=== PATIENT | female | born 1960 | race Caucasian/White ===

== ENCOUNTER 2018-03-09 06:14 | Inpatient (IN) | payer OTHER ==
[2018-02-09 13:38] VITALS: BMI 31.0
[2018-02-11 14:10] VITALS: BMI 32.0
--- NOTE | 2018-02-11 14:37 | PAT Medication Instructions ---
Service Date Feb 11, 2018. Current Home Medication List Celecoxib (CeleBREX), 200 MG PO BID Diazepam (Valium), 5 MG PO BID PRN for PRN Ibuprofen (Advil), 400 MG PO Q6 PRN for Pain Tramadol (Ultram), 50 MG PO Q8H PRN for Pain Medication Instructions For Your Scheduled Surgery - Hold the following medications 7 days prior to surgery: Celecoxib (CeleBREX), 200 MG PO BID Ibuprofen (Advil), 400 MG PO Q6 PRN for Pain - Take the following medications the morning of surgery with a sip of water: Diazepam (Valium), 5 MG PO BID PRN for PRN (if needed) Tramadol (Ultram), 50 MG PO Q8H PRN for Pain (if needed, may be taken up to four hours before surgery) - Take the following medications as scheduled the night before surgery: Diazepam (Valium), 5 MG PO BID PRN for PRN (if needed) Tramadol (Ultram), 50 MG PO Q8H PRN for Pain (if needed) If you have any questions please call us at [phone] or [phone] or [phone]
--- NOTE | 2018-03-08 18:03 | History and Physical ---
History & Physical Date Mar 08, 2018. Chief Complaint Left hip pain and DJD History of Present Illness The patient is a 57 year old female with complaints of chronic atraumatic left hip pain that has progressively worsened over the last 6 months. Patient has failed conservative treatment measures including NSAIDs, corticosteroid injections and physical therapy/home exercise program. The patient's symptoms have progressed to the point where they are with most daily activities the patient does not tolerate exercise programs. The pain and limited function have made it difficult to perform activities of daily living. She is currently limited to ambulating with a cane at this point. Patient continues to have swelling and painful limited range of motion crepitation. Developed all forms of conservative treatments and are requesting to proceed with total hip replacement surgery. Past Medical/Surgical History No significant past medical history. Allergies Coded Allergies: No Known Allergies (Unverified , 02/09/18) Home Medications Scheduled Celecoxib (CeleBREX), 200 MG PO BID Scheduled PRN Diazepam (Valium), 5 MG PO BID PRN for PRN Ibuprofen (Advil), 400 MG PO Q6 PRN for Pain Tramadol (Ultram), 50 MG PO Q8H PRN for Pain Physical Examination Skin: warm/dry, no rash Eyes: normal inspection, EOMI, sclerae normal ENT: normal ENT inspection, pharynx normal Head: normocephalic, atraumatic Neck: supple, no adenopathy, trachea midline Respiratory/Chest: lungs clear, normal breath sounds, no respiratory distress Cardiovascular: regular rate, rhythm, no edema, no murmur Abdomen / GI: normal bowel sounds, non tender Back: normal inspection Extremities: + pertinent finding (Left lower extremity is neurovascularly sensory intact +2 dorsalis pedis pulse, positive EHL/FHL/TA/GS, painful active and passive range of motion of the hip.) Neurologic/Psych: no motor/sensory deficits, alert, normal reflexes, oriented x 3 Diagnosis Severe left hip DJD Plan of Treatment Have indicated the patient for left anterior total hip arthroplasty. The risks , benefits and complications of this procedure include but not limited to infection, acute blood loss, blood clots, PE, injury to surrounding bone, nerves , soft tissue, vessels, loss of function, chronic pain, hip dislocation, leg length discrepancy, failure of prosthesis, need for additional surgery, cardiac and pulmonary events and . The patient wished to proceed with surgical intervention at this time consent was obtained. The patient is relatively healthy and we acquired clearances by their primary care provider on 03/01/2018. We will plan for [facility] upon discharge from the hospital. Aspirin twice daily for DVT prophylaxis. Multiple views of the left hip demonstrate severe DJD, complete loss of the joint space, + osteophytes/sclerosis and subchondral cysts.
[2018-03-09] VITALS (9 sets, daily range): BP systolic 111–170; BP diastolic 63–85; PULSE 64–87; TEMP 36.4–36.8; O2SAT 95–100; Ht 162.6 cm; Wt 85.7 kg
[~2018-03-09] VITALS: Ht 162.6 cm; Wt 85.7 kg
[~2018-03-09 06:14] MED LIST: ACETAMINOPHEN 500 MG TAB PO SCH; CEFAZOLIN 2000MG IV PUSH 15 ML IV SCH; CLB/200 PO; CeleBREX 200 MG CAP PO SCH; DEXAMETHASONE 4 MG TAB PO SCH; DIAZ-165 PO; FAMOTIDINE 20 MG TAB PO SCH; IBUP-1050 PO; LACTATED RINGER'S 1000ML 1,000 ML IV SCH; METOCLOPRAMIDE HCL 10 MG TAB PO SCH; ROPIVACAINE 5MG/ML 30 ML 150 MG, BUPIVACAINE 0.5% MPF INJ 30 ML, EpINEphrine HCL INJ 0.... INFIL SCH; TRAM-10 PO
[2018-03-09] MEDS: TRANEXAMIC ACID INJ 1,000 MG x 2 Bags IV SCH ×4 (06:30→08:50)
[2018-03-09] MEDS ORDERED: BUPIVACAINE 0.5 % 5 MG/1 ML PF 10ML VIAL ONE (06:35)
[2018-03-09] MEDS ORDERED: CEFAZOLIN SOD 2000MG/15 ML IV PUSH ONE (06:54)
--- NOTE | 2018-03-09 06:54 | History & Physical Bridge Note ---
H&P Re-Evaluation Bridge Note: I have examined the patient, reviewed the History & Physical and in the interval since the performance of the History & Physical I have noted the following changes of clinical significance: No changes noted
[2018-03-09] MEDS ORDERED: DIAZEPAM 5MG TAB PO PRN (07:00)
[2018-03-09] MEDS ORDERED: MIDAZOLAM HCL 1 MG/ML 2ML VIAL ONE ×4 (07:12→11:24)
[2018-03-09] MEDS ORDERED: FENTANYL CITRATE INJ 50 MCG/1 ML 2 ML VIAL ONE (07:12)
[2018-03-09] MEDS ORDERED: BACITRACIN 50000 UNIT VIAL ONE (07:49)
[2018-03-09] MEDS ORDERED: POVIDONE-IODINE OP SOLN 30 ML BTL ONE (07:49)
[2018-03-09] MEDS ORDERED: ORTHO JOINT ANESTHETIC ONE (07:49)
[2018-03-09] MEDS ORDERED: ATROPINE SULFATE 0.1 MG/ML 5ML SYR IV PRN (08:30)
[2018-03-09] MEDS ORDERED: HYDROmorphone INJ 1 MG/ML SYR IV PRN (08:30)
[2018-03-09] MEDS ORDERED: MEPERIDINE HCL 25 MG/ML CARP IV PRN (08:30)
[2018-03-09] MEDS ORDERED: LABETALOL HCL IV 5 MG/ML 20ML IV PRN (08:30)
[2018-03-09] MEDS ORDERED: FENTANYL CITRATE INJ 50 MCG/1 ML 2 ML VIAL IV PRN (08:30)
[2018-03-09] MEDS ORDERED: EpHEDrine SULFATE INJ 50 MG/ML AMP IV PRN (08:30)
[2018-03-09] MEDS ORDERED: ONDANSETRON INJ 2 MG/ML 2 ML VIAL IV PRN ×2 (08:30→11:45)
[2018-03-09] MEDS ORDERED: PROPOFOL IV EMULSION 10 MG/ML 20 ML VIAL ONE (09:24)
[2018-03-09] MEDS ORDERED: DEXAMETHASONE SOD INJ 4 MG/ML VIAL ONE (09:42)
[2018-03-09] MEDS ORDERED: KETAMINE HCL INJ 50 MG/ML 10 ML VIAL ONE (09:57)
[2018-03-09] MEDS ORDERED: ONDANSETRON INJ 2 MG/ML 2 ML VIAL ONE (11:26)
--- NOTE | 2018-03-09 11:36 | [facility] Post Operative Brief Note ---
Immediate Operative Summary Operative Date Mar 09, 2018. Pre-Operative Diagnosis Left Hip Degnerative Joint Disease Post-Operative Diagnosis Same Procedure(s) Performed Left Total Hip Arthroplasty Anterior Surgeon Caitie Non Destructive Testing Technician Surgeon(s) Conor Estimated Blood Loss 100 ml Findings Consistent with Post-Op Diagnosis Fluids (cc crystalloids) 1200 Specimens A. Left Femoral Head Drains None Anesthesia Type MAC Spinal Regional Complication(s) none Disposition Disposition: Recovery Room / PACU Overlapping Procedure I was present for: the critical portions of procedure. I was immediately available: during the entire case Back up surgeon: was not required during procedure
[2018-03-09] MEDS ORDERED: CEFAZOLIN IV SCH (11:45)
[2018-03-09] MEDS ORDERED: DEXTROSE 5% IV SCH (11:45)
[2018-03-09] MEDS ORDERED: MoRPHine SULFATE 2 MG/ML CARP IV PRN (11:45)
--- NOTE | 2018-03-09 11:57 | [facility] Operative Report ---
Operative Report Operative Date Mar 09, 2018. Pre-Operative Diagnosis Left Hip Degnerative Joint Disease Post-Operative Diagnosis Same Procedure(s) Performed Left Total Hip Arthroplasty Anterior Surgeon Caitie Engineering Analyst Surgeon(s) Conor Estimated Blood Loss 100 ml Findings See dictated op note Fluids 1200 Specimens A. Left Femoral Head Drains None Anesthesia Type MAC Spinal Regional Complication(s) none Disposition Recovery Room / PACU Indications The patient is a 57-year-old female who presents with severe progressive left hip DJD who has failed outpatient conservative treatments. I indicated the patient for a anterior total hip replacement and the risks and benefits were explained in detail which include but not limited to infection, bleeding, blood clot, damage to surrounding bone, nerves, vessels, soft tissue, hip dislocation , failure of the prosthesis, leg length discrepancy, need for additional surgery and . The patient agreed to proceed with replacement of the hip and informed consent was obtained. Appropriate clearances were obtained. Description of Procedure COMPONENTS USED: [email or web address] hip system: Acetabulum size 48, femur size 4 offset, femoral head 32+4, liner 3248, acetabular screw 25 mm. DESCRIPTION OF PROCEDURE: Following satisfactory spinal anesthesia, the patient was placed supine on the OR table. The right leg was placed in the well leg bhat and the left leg in the traction device. The left leg was prepared with ChloraPrep and draped sterilely. Following a surgical time-out, an anterior approach in the interval between the sartorius and tensor muscles was completed. Circumflex femoral vessels were identified, tied and ligated. The anterior capsular fat pad was removed and the capsulotomy was performed revealing the arthritic femoral neck and head. A femoral neck cut was made with reciprocating saw and the bone fragments removed. The acetabular self- retraining retractor was placed. Acetabular reaming was completed under fluoroscopic guidance, a 48 shell was impacted into an anatomic position and secured with a dome screw. Local anesthetic was placed and following irrigation , the polyethylene liner was placed. The femur was placed into position of external rotation, extension and adduction. Femoral canal was prepared up to the size 4 standard offset. Trial reduction with a +4 neck length head showed good soft tissue tension, leg lengths restored, and good fit and fill of the proximal canal using fluoroscopic landmarks. The hip was dislocated. The trial component was removed. The final implant was placed. The hip was irrigated with sterile saline solution and reduced. A Betadine soak was performed. After 3 minutes, the hip was once more irrigated with copious sterile saline solution with bacitracin. Bozena-incisional soft tissue was injected utilizing [place] [employer] which includes a combination of Ropivicaine 0.5% 150mg, Bupivicaine 0.5%/Epinephrine 1:200,000 30ml, Toradol 30mg, Dexamethasone 4mg, Ketamine 10mg, Clonidine 100mcg and NSS 30ml solution. The capsule was then closed with 1-0 Vicryl interrupted figure of eight sutures. The fascia was closed with a running suture of #1 Vicryl, the subcutaneous tissues with 2-0 Vicryl and the skin with a running subcuticular stitch of 3-0 V-Loc. Dermabond prineo and a dry dressing were applied. The patient tolerated the procedure well and was transported to PACU in stable condition. Due to the complex nature of the procedure, the entire surgery was performed with the operational assistance of Patricia Perdomo PA-C. The pediatric dental assistant, under direct supervision, was involved in the actual performance of all aspects of the surgical procedure including patient positioning, hemostasis, tissue retraction, instrument management and wound closure. I attest to the content of the Intraoperative Record and any orders documented therein. Any exceptions are noted below.
--- NOTE | 2018-03-09 12:01 | DIAGNOSTIC IMAGING REPORT ---
L HIP UNILATERAL 1 VIEW CLINICAL HISTORY: LT ANTERIOR TOTAL joint replacement COMPARISON: None. DISCUSSION: Anatomic alignment post total left hip arthroplasty. Expected soft tissue postoperative change IMPRESSION: Anatomic alignment post total left hip arthroplasty The above report was generated using voice recognition software. It may contain grammatical, syntax or spelling errors. Electronically signed by: Barrett Mendosa M.D. 03/09/2018 12:00 PM Dictated Date/Time: 03/09/2018 11:59 AM
--- NOTE | 2018-03-09 12:28 | DIAGNOSTIC IMAGING REPORT ---
L PELVIS/UNILATERAL HIP 1 VIEW CLINICAL HISTORY: IN PACU - A/P PELVIS and LATERAL HIP INCLUDING ALL OF IMPLANT COMPARISON: None. DISCUSSION: Total left hip arthroplasty. Good contact between prosthetic and the Bone. All remaining osseous structures are unremarkable. Expected postoperative soft tissue change. IMPRESSION: Anatomic alignment post total left hip arthroplasty. The above report was generated using voice recognition software. It may contain grammatical, syntax or spelling errors. Electronically signed by: Barrett Mendosa M.D. 03/09/2018 12:27 PM Dictated Date/Time: 03/09/2018 12:26 PM
--- NOTE | 2018-03-09 13:36 | Anesthesiology Progress Note ---
Anesthesia Post Op Note Date & Time Mar 09, 2018 at 13:35 Vital Signs Pain Intensity: 0 Vital Signs Past 12 Hours Date Time Temp Pulse Resp B/P (MAP) Pulse Ox O2 Delivery O2 Flow Rate FiO2 03/09/18 12:55 95 Room Air 03/09/18 12:55 95 Room Air 03/09/18 12:53 36.4 71 15 114/74 (87) 95 Room Air 03/09/18 12:45 36.4 86 16 131/75 98 Room Air 03/09/18 12:35 83 16 155/77 100 Room Air 03/09/18 12:25 81 16 146/75 100 Nasal Cannula 3 03/09/18 12:15 78 16 162/81 100 Nasal Cannula 3 03/09/18 12:07 36.0 73 16 146/88 98 Nasal Cannula 3 03/09/18 06:59 36.8 84 20 170/85 99 Room Air Notes Mental Status: alert / awake / arousable, participated in evaluation Pt Amnestic to Procedure: Yes Nausea / Vomiting: adequately controlled Pain: adequately controlled Airway Patency, RR, SpO2: stable & adequate BP & HR: stable & adequate Hydration State: stable & adequate Neuraxial Anesthesia: was administered, sensory block is resolving Anesthetic Complications: no major complications apparent
[2018-03-09] MEDS: SODIUM CHLORIDE 0.9% 1000ML 1,000 ML IV SCH ×2 (14:14→21:19)
[2018-03-09] MEDS: ACETAMINOPHEN 500 MG TAB PO SCH ×2 (14:25→21:14)
[2018-03-09] MEDS: OXYCODONE HCL IR 5 MG TAB (IMMEDIATE RELEASE) PO PRN ×2 (17:12→21:14)
[2018-03-09] MEDS: CEFAZOLIN IV 2,000 MG in SYRINGE 0 ML IV SCH (17:57)
[2018-03-09] MEDS: KETOROLAC TROMETHAMINE 30 MG/ML VIAL IV. SCH (17:57)
[2018-03-09] MEDS ORDERED: SODIUM CHLORIDE 0.65% NA SOLN 45 ML (OCEAN) PRN (20:15)
[2018-03-09] MEDS ORDERED: NURSING DECISION MEDICATION ORDER SCH (20:15)
[2018-03-09] MEDS: SENNA 8.6 MG TAB PO SCH (21:13)
[2018-03-09] MEDS: ASPIRIN 325 MG ECTAB PO SCH (21:13)
[2018-03-09] MEDS: DOCUSATE SODIUM 100 MG CAP PO SCH (21:13)
[2018-03-10] VITALS (7 sets, daily range): BP systolic 113–147; BP diastolic 64–82; PULSE 63–83; TEMP 36.3–36.6; O2SAT 95–100
[2018-03-10] MEDS: KETOROLAC TROMETHAMINE 30 MG/ML VIAL IV. SCH ×3 (00:06→12:08)
[2018-03-10] MEDS: CEFAZOLIN IV 2,000 MG in SYRINGE 0 ML IV SCH (01:55)
[2018-03-10] MEDS: OXYCODONE HCL IR 5 MG TAB (IMMEDIATE RELEASE) PO PRN ×4 (02:00→19:39)
[2018-03-10] MEDS: ACETAMINOPHEN 500 MG TAB PO SCH ×3 (06:08→20:58)
[2018-03-10 06:48] LABS: HEMATOCRIT 37.2 % (37-47); HEMOGLOBIN 12.7 g/dL (12.0-16.0); IG# 0.03 K/uL (0.00-0.02); LYMPH % 8.4 %; LYMPH ABS # 1.31 K/uL (1.2-3.4); MEAN CELL VOLUME 90.1 fL (80-100); MEAN CORPUSCULAR HEMOGLOBIN 30.8 pg (25-34); MEAN CORPUSCULAR HGB CONC 34.1 g/dl (32-36); MEAN PLATELET VOLUME 10.4 fL (7.4-10.4); MONO % 4.5 %; NEUT % 86.9 %; PLATELET COUNT 275 K/uL (130-400); RED CELL DISTRIBUTION WIDTH CV 12.7 % (11.5-14.5); RED CELL DISTRIBUTION WIDTH SD 41.4 fL (36.4-46.3); WHITE BLOOD COUNT 15.54 K/uL (4.8-10.8)
[2018-03-10 06:56] LABS: INR 1.1 (0.9-1.1)
[2018-03-10] MEDS: SODIUM CHLORIDE 0.9% 1000ML 1,000 ML IV SCH (06:59)
[2018-03-10 07:23] LABS: CALCIUM 8.7 mg/dl (8.5-10.1); CREATININE 0.77 mg/dl (0.60-1.20); POTASSIUM 4.1 mmol/L (3.5-5.1)
--- NOTE | 2018-03-10 08:01 | Anesthesiology Progress Note ---
Anesthesia Post Op Note Date & Time Mar 10, 2018 at 08:00 Vital Signs Pain Intensity: 4.0 Vital Signs Past 12 Hours Date Time Temp Pulse Resp B/P (MAP) Pulse Ox O2 Delivery O2 Flow Rate FiO2 03/10/18 07:28 36.5 83 18 147/76 (99) 100 Room Air 03/10/18 07:20 Room Air 03/10/18 03:55 36.4 66 16 113/64 (80) 98 Room Air 03/10/18 00:15 95 Room Air 3.0 03/09/18 23:01 36.7 81 16 127/63 (84) 99 Room Air Notes Mental Status: alert / awake / arousable, participated in evaluation Pt Amnestic to Procedure: Yes Nausea / Vomiting: adequately controlled Pain: adequately controlled Airway Patency, RR, SpO2: stable & adequate BP & HR: stable & adequate Hydration State: stable & adequate Neuraxial Anesthesia: was administered, sensory block resolved Anesthetic Complications: no major complications apparent
[2018-03-10] MEDS: PANTOprazole SOD 40 MG TAB PO SCH (08:18)
[2018-03-10] MEDS: ASPIRIN 325 MG ECTAB PO SCH ×2 (08:18→20:58)
--- NOTE | 2018-03-10 09:28 | Orthopedic Progress Note ---
Orthopedic Progress Note Date of Service Mar 10, 2018. Subjective Additional Notes: Postoperative progress note Patient was seen in PACU resting comfortably, pain well controlled, still feeling the effects of spinal anesthesia, no acute issues. Objective Left lower extremity exam limited secondary to spinal anesthesia, +2 dorsalis pedis pulse, capillary refill less than 2 seconds, incisional VAC in place, compartments soft nontender Date Time Temp Pulse Resp B/P (MAP) Pulse Ox O2 Delivery O2 Flow Rate FiO2 03/10/18 07:28 36.5 83 18 147/76 (99) 100 Room Air 03/10/18 07:20 Room Air 03/10/18 03:55 36.4 66 16 113/64 (80) 98 Room Air 03/10/18 00:15 95 Room Air 3.0 03/09/18 23:01 36.7 81 16 127/63 (84) 99 Room Air 03/09/18 19:03 36.7 83 18 119/72 (88) 98 Room Air 03/09/18 15:52 77 16 111/67 (82) 97 Room Air 03/09/18 15:40 Room Air 03/09/18 14:55 36.4 78 18 121/74 (90) 98 Room Air 03/09/18 14:04 36.4 87 18 125/74 (91) 100 Room Air 03/09/18 13:38 36.4 64 18 126/77 (93) 100 Room Air 03/09/18 12:55 95 Room Air 03/09/18 12:55 95 Room Air 03/09/18 12:53 36.4 71 15 114/74 (87) 95 Room Air 03/09/18 12:45 36.4 86 16 131/75 98 Room Air 03/09/18 12:35 83 16 155/77 100 Room Air 03/09/18 12:25 81 16 146/75 100 Nasal Cannula 3 03/09/18 12:15 78 16 162/81 100 Nasal Cannula 3 03/09/18 12:07 36.0 73 16 146/88 98 Nasal Cannula 3 Laboratory Results 24 Hours: Test 03/10/18 06:19 White Blood Count 15.54 K/uL Red Blood Count 4.13 M/uL Hemoglobin 12.7 g/dL Hematocrit 37.2 % Mean Corpuscular Volume 90.1 fL Mean Corpuscular Hemoglobin 30.8 pg Mean Corpuscular Hemoglobin Concent 34.1 g/dl Platelet Count 275 K/uL Mean Platelet Volume 10.4 fL Neutrophils (%) (Auto) 86.9 % Lymphocytes (%) (Auto) 8.4 % Monocytes (%) (Auto) 4.5 % Eosinophils (%) (Auto) 0.0 % Basophils (%) (Auto) 0.0 % Neutrophils # (Auto) 13.50 K/uL Lymphocytes # (Auto) 1.31 K/uL Monocytes # (Auto) 0.70 K/uL Eosinophils # (Auto) 0.00 K/uL Basophils # (Auto) 0.00 K/uL Prothromb Time International Ratio 1.1 Prothrombin Time 11.1 SECONDS Assessment & Plan Assessment: Status post left anterior total hip arthroplasty Plan: -Ancef 24 -DVT prophylaxis aspirin twice daily -Weight-bear as tolerates left lower extremity -PT OT -Postoperative x-ray demonstrates a well aligned well fixed total hip prosthesis without evidence of fracture or dislocation -A.m. labs -Discharge planning home with home care
--- NOTE | 2018-03-10 09:29 | Orthopedic Progress Note ---
Orthopedic Progress Note Date of Service Mar 10, 2018. Subjective Additional Notes: Postoperative day 1 progress note Patient seen sitting in chair at bedside, family in room, pain well controlled, admits to soreness otherwise improved pain compared to postoperatively, no acute issues overnight Objective Left lower extremity is neurovascular sensory intact +2 dorsalis pedis pulse, capillary refill less than 2 seconds, incisional VAC is intact, compartments soft nontender Date Time Temp Pulse Resp B/P (MAP) Pulse Ox O2 Delivery O2 Flow Rate FiO2 03/10/18 07:28 36.5 83 18 147/76 (99) 100 Room Air 03/10/18 07:20 Room Air 03/10/18 03:55 36.4 66 16 113/64 (80) 98 Room Air 03/10/18 00:15 95 Room Air 3.0 03/09/18 23:01 36.7 81 16 127/63 (84) 99 Room Air 03/09/18 19:03 36.7 83 18 119/72 (88) 98 Room Air 03/09/18 15:52 77 16 111/67 (82) 97 Room Air 03/09/18 15:40 Room Air 03/09/18 14:55 36.4 78 18 121/74 (90) 98 Room Air 03/09/18 14:04 36.4 87 18 125/74 (91) 100 Room Air 03/09/18 13:38 36.4 64 18 126/77 (93) 100 Room Air 03/09/18 12:55 95 Room Air 03/09/18 12:55 95 Room Air 03/09/18 12:53 36.4 71 15 114/74 (87) 95 Room Air 03/09/18 12:45 36.4 86 16 131/75 98 Room Air 03/09/18 12:35 83 16 155/77 100 Room Air 03/09/18 12:25 81 16 146/75 100 Nasal Cannula 3 03/09/18 12:15 78 16 162/81 100 Nasal Cannula 3 03/09/18 12:07 36.0 73 16 146/88 98 Nasal Cannula 3 Laboratory Results 24 Hours: Test 03/10/18 06:19 White Blood Count 15.54 K/uL Red Blood Count 4.13 M/uL Hemoglobin 12.7 g/dL Hematocrit 37.2 % Mean Corpuscular Volume 90.1 fL Mean Corpuscular Hemoglobin 30.8 pg Mean Corpuscular Hemoglobin Concent 34.1 g/dl Platelet Count 275 K/uL Mean Platelet Volume 10.4 fL Neutrophils (%) (Auto) 86.9 % Lymphocytes (%) (Auto) 8.4 % Monocytes (%) (Auto) 4.5 % Eosinophils (%) (Auto) 0.0 % Basophils (%) (Auto) 0.0 % Neutrophils # (Auto) 13.50 K/uL Lymphocytes # (Auto) 1.31 K/uL Monocytes # (Auto) 0.70 K/uL Eosinophils # (Auto) 0.00 K/uL Basophils # (Auto) 0.00 K/uL Prothromb Time International Ratio 1.1 Prothrombin Time 11.1 SECONDS Assessment & Plan Assessment: Status post left anterior total hip arthroplasty Postoperative day #1 Plan: -Ancef 24 -DVT prophylaxis aspirin twice daily -Weight-bear as tolerates left lower extremity -PT OT -Postoperative x-ray demonstrates a well aligned well fixed total hip prosthesis without evidence of fracture or dislocation -A.m. labs -hemoglobin 12.7 -Discharge planning home with home care, anticipation discharge today
[2018-03-10] MEDS: DOCUSATE SODIUM 100 MG CAP PO SCH ×2 (09:58→20:58)
[2018-03-10] MEDS: MULTIVITAMIN TAB PO SCH (09:58)
--- NOTE | 2018-03-10 11:56 | Discharge Instructions ---
Discharge Instructions Date of Service Mar 10, 2018. Admission Reason for Admission: Left Hip Osteoarthritis Discharge Discharge Diagnosis / Problem: Left Hip Osteoarthritis Discharge Goals Goal(s): Decrease discomfort, Improve function Activity Recommendations Activity Limitations: per Instructions/Follow-up section Weightbearing Status: Left weightbearing (as tolerated) . Instructions / Follow-Up Instructions / Follow-Up ACTIVITY RECOMMENDATIONS: SELF CARE INSTRUCTIONS AFTER TOTAL HIP REPLACEMENT : Direct Anterior Approach Until the incision and soft tissues around your hip have healed, there is a possibility that the hip prosthesis could dislocate. A. Hip flexion ( Up & Down out of chair or steps ) may be difficult. This is normal. B. Numbness in front of the thigh is also normal for a few weeks. C. Use hand rails when walking on stairs. D. Wear low heeled shoes with non-slip soles. E. Be sure that your floors are free of things that could trip you - throw rugs , electrical cords, small objects. Avoid wet and waxed floors, especially with crutches and canes. F. Try to walk several times a day with rest periods between. G. Continue with all the exercises taught to you in the hospital. Again, make walking a part of your daily routine. SPECIAL CARE INSTRUCTIONS: VERY IMPORTANT TO READ AND REVIEW A. You may still be at risk for phlebitis and blood clots. 1. Wear surgical stockings (MINE hose) for 2 weeks after surgery to improve circulation and reduce swelling. 2. Take Aspirin 325mg twice daily for 4 weeks or as directed by your doctor. This is your blood thinner. 3. High risk patients may be prescribed a stronger blood thinner if necessary. 4. If you are on Coumadin normally, your family doctor/millinery department manager should monitor your blood work. Expect a phone call the day of or the day after bloodwork is drawn to adjust your dosage. B. You must take antibiotics before having dental work, bladder, bowel and other surgery. Your doctor will provide you with a permanent card to carry describing precautions. C. Call [facility] if you have a fever, redness or swelling around the incision, cloudy drainage from incision, or sudden increase in pain in your hip, not relieved by your regular pain medication. D. Please call the office at if you have any concerns or questions about your operation or recovery. * YOU MAY SHOWER, NO TUB BATHS UNTIL CLEARED BY YOUR DOCTOR. - Keep an extra close eye on the top portion of your incision. Be sure to keep clean & dry. * WEAR MINE HOSE 20 HOURS PER DAY FOR 2 WEEKS. * YOU MAY PROGRESS FROM A WALKER, TO A CANE, TO INDEPENDENT AT YOUR OWN PACE. * MOST PATIENTS WILL HAVE HOME NURSING FOR THERAPY. IF YOU DECIDE TO DO OUTPATIENT PHYSICAL THERAPY, PLEASE SCHEDULE THIS 3 TIMES PER WEEK. * DERMABOND Prineo- This is a mesh tape dressing that is covered with glue. It should remain in place until the incision is properly healed, usually 10-14 days. This dressing is designed to naturally slough off. You may trim the excess mesh tape as it peels off. Incision may be briefly wet in a shower. Dry immediately by blotting with a clean, dry towel. Do not bath or swim until instructed by your doctor. Do not scratch, rub, or pick at the dressing. Do not apply any topical ointments or lotions until dressing is completely removed and/or instructed by your doctor. There may be a small piece of suture material at one end of your incision. Do not pull or trim this. If it is bothersome or catching on clothing, you may cover it with a band-aid. FOLLOW UP VISIT: If appointment is not already scheduled: Please call [facility] to make a follow-up appointment for 2 weeks after your surgery at . Current Hospital Diet Patient's current hospital diet: Regular Diet Discharge Diet Recommended Diet: Regular Diet Procedures Procedures Performed: Left Total Hip Arthroplasty Anterior Pending Studies Studies pending at discharge: no Laboratory Results Hemoglobin A1c Test 02/11/18 14:57 Range/Units Estimated Average Glucose 97 mg/dl Hemoglobin A1c 5.0 4.5-5.6 % Medical Emergencies . Who to Call and When: Medical Emergencies: If at any time you feel your situation is an emergency, please call 911 immediately. . Non-Emergent Contact Non-Emergency issues call your: Surgeon Call Non-Emergent contact if: temperature is above 101.5, your pain is not controlled, your pain is worsening, wound has increased drainage, wound has increased redness . "Provider Documentation" section prepared by Jose Alejandro Carrillo. . [place] Drug Monitoring Program Search Results: patient reviewed within database, no issues identified
[2018-03-10] MEDS ORDERED: CLB/200 PO (12:12)
[2018-03-10] MEDS ORDERED: ASPEC325 PO (12:12)
[2018-03-10] MEDS ORDERED: RXC5 PO (12:12)
[2018-03-10] MEDS ORDERED: SENN-61 PO (12:12)
[2018-03-10] MEDS ORDERED: ACET-24 PO (12:12)
[2018-03-10] MEDS: CeleBREX 200 MG CAP PO SCH (20:58)
[2018-03-10] MEDS: SENNA 8.6 MG TAB PO SCH (20:58)
[2018-03-11 00:15] VITALS: O2SAT 100
[2018-03-11] MEDS: OXYCODONE HCL IR 5 MG TAB (IMMEDIATE RELEASE) PO PRN ×3 (04:51→10:55)
[2018-03-11] MEDS: ACETAMINOPHEN 500 MG TAB PO SCH (05:59)
[2018-03-11 07:12] VITALS: BP 138/74; PULSE 82; TEMP 36.5; O2SAT 100
--- NOTE | 2018-03-11 07:44 | Orthopedic Progress Note ---
Orthopedic Progress Note Date of Service Mar 11, 2018. Subjective Post OP Day: 2 Reports: feeling well, Denies: chest pain, SOB, nausea / vomiting, light headedness, calf pain Objective calves soft nontender, N/V intact, hip located, capillary refill less than 2 sec., dressing C/D/I, A&O x3, toes mobile Date Time Temp Pulse Resp B/P (MAP) Pulse Ox O2 Delivery O2 Flow Rate FiO2 03/11/18 07:12 36.5 82 18 138/74 (95) 100 Room Air 03/11/18 00:15 100 Room Air 3.0 03/10/18 23:03 36.4 74 16 114/65 (81) 100 Room Air 03/10/18 16:20 Room Air 03/10/18 15:28 36.6 83 18 121/73 (89) 100 Room Air 03/10/18 11:59 75 100 03/10/18 11:04 36.3 63 16 119/71 (87) 100 Room Air Assessment & Plan Assessment: Status post left anterior total hip arthroplasty Postoperative day #2 Plan: -Ancef 24 -DVT prophylaxis aspirin twice daily -Weight-bear as tolerates left lower extremity -PT OT -Postoperative x-ray demonstrates a well aligned well fixed total hip prosthesis without evidence of fracture or dislocation -A.m. labs -hemoglobin 12.7 -Discharge planning home with home care, anticipation discharge today
[2018-03-11 08:02] VITALS: BP 138/74; PULSE 82; TEMP 36.5; O2SAT 100
[2018-03-11] MEDS: ASPIRIN 325 MG ECTAB PO SCH (08:56)
[2018-03-11] MEDS: PANTOprazole SOD 40 MG TAB PO SCH (08:56)
[2018-03-11] MEDS: CeleBREX 200 MG CAP PO SCH (08:56)
[2018-03-11] MEDS: DOCUSATE SODIUM 100 MG CAP PO SCH (08:56)
[2018-03-11] MEDS: MULTIVITAMIN TAB PO SCH (08:56)
== END 2018-03-11 11:45 | disposition home health service (06) | DRG 470 ==
LOC: C.ACU 06:14 → C.3E 08:45 → ENRESERV 12:30
PROVIDERS: ADMIT Orthopaedic Surgery; ATTEND Orthopaedic Surgery
PROC: 0SRB0JA Replacement of Left Hip Joint with Synthetic Substitute, Uncemented, Open Approach (ICD-10-PCS; principal; 2018-03-09 08:45)
DX: M16.12 Unilateral primary osteoarthritis, left hip (principal); Z79.899 Other long term (current) drug therapy

== ENCOUNTER 2020-10-22 06:43 | Inpatient (IN) ==
--- NOTE | 2020-10-10 11:08 | PAT Medication Instructions ---
Medication Instructions Date of Service October 10, 2020 Home Medications acetaminophen [Acetaminophen Extra Strength] 1,000 mg PO TID PRN celecoxib [Celebrex] 200 mg PO BID ASK your surgeon for instructions celecoxib [Celebrex] 200 mg PO BID Take morning of surgery With a small sip of water, OTHERWISE NOTHING TO EAT OR DRINK AFTER MIDNIGHT: acetaminophen [Acetaminophen Extra Strength] 1,000 mg PO TID PRN (okay to take up to 4 hours prior to surgery if needed) Take evening before surgery acetaminophen [Acetaminophen Extra Strength] 1,000 mg PO TID PRN (if needed) Other Notes If you have any questions please call us at [phone] or [phone] or [phone] or [phone]
--- NOTE | 2020-10-11 14:27 | Anesthesiology Consultation ---
Date of Service October 11, 2020 Assessment & Plan (1) Encounter for pre-operative examination: Chart Review Chart Review: Acceptable Risk for Surgery (pending 10/15 PCP clearance and preop Covid testing ) and Patient seen in Pre Admission Testing Awaiting surgeon ordered PCP clearance 10/15/20 Pt had awareness with left FARHAT Per PAT appt on 10/11/20, pt resides in [facility]- denies travel with exception to [facility] for medical appts. Wears mask in public. No known Covid infection in the past 90 days. No known Covid positive contacts or Covid related symptoms. Preop Covid testing scheduled 10/17/20= will await results. Educated on importance of self quarantining, social distancing and wearing mask in public both for the patient and household contacts. Left FARHAT 03/09/18= Done under SAB at L3-4 with 1 attempt. Teaching & Discussion Pre-Anesthesia Teaching/Discussion Notes: Instructed NPO after midnight before surgery,except medications with 15 cc of water. Medication instructions provided according to the [facility] guidelines. History Surgery Operation Date: 10/22/20 07:00 Proposed Procedures p Right Anterior Total Hip Arthroplasty - Saturnino Blood DO Height/Weight Height: 5 ft 4 in Weight: 82.6 kg Allergies Allergy/AdvReac Type Severity Reaction Status Date / Time No Known Allergies Allergy Verified 10/10/20 09:35 Medications Home Medications Medication Instructions Recorded Confirmed Last Taken acetaminophen [Acetaminophen Extra 1,000 mg PO TID PRN 09/19/20 10/10/20 Unknown Strength] celecoxib [Celebrex] 200 mg PO BID 09/19/20 10/10/20 Unknown Past Medical History Medical History Degenerative joint disease (DJD) of hip History of anesthesia reaction woke up during left FARHAT 2018 @ [facility] Exercise / Class Metabolic Activity II 4-5 Yardwork/Stairs/Walk up hill (ONE FLIGHT OF STAIRS- NO CHEST PAIN OR SOB ) Past Family History Family History Mother Family history of esophageal cancer Other No family history of adverse response to anesthesia Past Surgical History Surgical History History of appendectomy History of benign breast biopsy History of section History of tooth extraction History of total left hip arthroplasty Past Anesthesia History No Hx of Anesthesia Complications (with exception to awareness with left FARHAT ) and No Family Hx of Anesthesia Complications History of PONV No Hx of PONV and No Hx of Motion Sickness Social History Smoking Status: Former smoker Do You Dip or Chew Tobacco: No Smoking End Date: quit 15yrs ago Hx Alcohol Use: Yes Alcohol type: beer and wine alcohol intake frequency: a few times a month Hx Substance Use: No substance use type: does not use Review of Systems Patient denies chest pain, shortness of breath, dyspnea on exertion, reflux, cough, wheezing, palpitations. No hx of seizures, stroke, [place], apnea/snoring. No hx of blood clots or blood transfusions Physical Exam Vital Signs VITALS BP 164/84 P 82 TEMP 98.4 SP02 100% RESP 16 Constitutional no acute distress ENMT Mouth: no TMJ clicking Thyromental Distance: < 3.5 Finger Breadths (3.0) Mallampati Class: III Missing molars Neck + short neck and + limited neck extension (mild ) Respiratory normal respiratory effort; no respiratory distress Auscultation: lungs clear to auscultation bilaterally; no wheezes Cardiovascular Rate/Rhythm: regular rate and regular rhythm Heart Sounds: no murmur Vessels: no carotid bruit Musculoskeletal Spine: no pain with cervical ROM Extremities: extremities normal to inspection Psychiatric Orientation: alert Testing Laboratory Results 10/11/20 14:57 10/11/20 14:57 PT 11.0 Seconds (9.0-12.0) 10/11/20 14:57 INR 1.1 (0.9-1.1) 10/11/20 14:57 APTT 26.3 Seconds (21.0-31.0) 10/11/20 14:57 Hemoglobin A1c 5.2 % (4.5-5.6) 10/11/20 14:57 Urine Color Yellow 10/11/20 14:57 Urine Appearance Clear (Clear) 10/11/20 14:57 Urine pH 6.5 (4.5-7.5) 10/11/20 14:57 Ur Specific [place] 1.017 (1.000-1.030) 10/11/20 14:57 Urine Protein Negative (Negative) 10/11/20 14:57 Urine Glucose (UA) Negative (Negative) 10/11/20 14:57 Urine Ketones Negative (Negative) 10/11/20 14:57 Urine Nitrite Negative (Negative) 10/11/20 14:57 Ur Leukocyte Esterase Negative (Negative) 10/11/20 14:57 Blood Type A Positive 10/11/20 14:57 Antibody Screen NEGATIVE 10/11/20 14:57 10/11/20 14:57 Urine Culture - Preliminary Urine,Clean Catch No growth - Less than 1,000 colonies/mL, Final report to follow. Electrocardiogram Date: 10/11/20 Findings: + NSR @ (73bpm) Normal EKG. Chest X-Ray Date: 10/11/20 Findings: + NAD
[2020-10-11 15:16] LABS: Basophils # (auto) 0.04 K/uL (0-0.2); Basophils % (auto) 0.6 %; Eosinophils # (auto) 0.12 K/uL (0-0.5); Eosinophils % (auto) 1.8 %; Hematocrit (blood only) 41.5 % (37-47); Hemoglobin 14.5 g/dL (12.0-16.0); Immature Granulocytes # (auto) 0.01 K/uL (0.00-0.02); Immature Granulocytes % (auto) 0.1 %; Lymphocytes # (auto) 1.85 K/uL (1.2-3.4); Lymphocytes % (auto) 27.1 %; Mean Corpuscular Hemoglobin 31.9 pg (25-34); Mean Corpuscular Hgb Conc 34.9 g/dL (32-36); Mean Corpuscular Volume 91.2 fL (80-100); Mean Platelet Volume 10.1 fL (7.4-10.4); Monocytes # (auto) 0.36 K/uL (0.11-0.59); Monocytes % (auto) 5.3 %; Neutrophils # (auto) 4.44 K/uL (1.4-6.5); Neutrophils % (auto) 65.1 %; Platelet Count 303 K/uL (130-400); RDW Coefficient of Variation 12.5 % (11.5-14.5); RDW Standard Deviation 41.9 fL (36.4-46.3); Red Blood Count 4.55 M/uL (4.2-5.4); White Blood Count 6.82 K/uL (4.8-10.8)
[2020-10-11 15:17] LABS: Appearance Urine Clear (Clear); Bilirubin Urine Negative (Negative); Blood Urine Negative (Negative); Color Urine Yellow; Glucose Urine UA Negative (Negative); Ketones Urine Negative (Negative); Leukocyte Esterase Urine Negative (Negative); Nitrite Urine Negative (Negative); Protein Urine Negative (Negative); Specific Gravity Urine 1.017 (1.000-1.030); Urobilinogen Urine Negative (Negative); pH Urine 6.5 (4.5-7.5)
--- NOTE | 2020-10-11 15:22 | XRay Report ---
XR chest Pre-admission PA/Lat HISTORY: 60 years-old Female pat preoperative exam. COMPARISON: Chest radiographs 02/11/2018 TECHNIQUE: PA and lateral views of the chest FINDINGS: Cardiomediastinal and hilar silhouettes are within normal limits. There is no pneumothorax, pleural e ffusion, airspace consolidation or overt pulmonary edema. Degenerative changes of the shoulders and s pine. IMPRESSION: No acute process. ACT 112: Negative or not required by law. The above report was generated using voice recognition software. It may contain grammatical, syntax o r spelling errors. Electronically signed by: Aj Amaya M.D. 10/11/2020 3:20 PM
[2020-10-11 15:29] LABS: INR 1.1 (0.9-1.1); Partial Thromboplastin Time 26.3 Seconds (21.0-31.0)
[2020-10-11 16:14] LABS: Albumin Level 4.2 gm/dl (3.4-5.0); BUN Creatinine Ratio 26.3 (10-20); Calcium 9.5 mg/dl (8.5-10.1); Creatinine Clr Calc Pharmacy 82.9 ml/min; Est GFR (African American) 99.5; Est GFR (Non-African American) 85.9; Potassium 4.1 mmol/L (3.5-5.1)
[2020-10-12 05:59] LABS: Estimated Average Glucose 103 mg/dl; Hemoglobin A1C 5.2 % (4.5-5.6)
--- NOTE | 2020-10-12 13:30 | Electrocardiogram Report ---
Test Reason : Blood Pressure : / mmHG Vent. Rate : 073 BPM Atrial Rate : 073 BPM P-R Int : 134 ms QRS Dur : 078 ms QT Int : 378 ms P-R-T Axes : 064 050 050 degrees QTc Int : 416 ms Normal sinus rhythm Normal ECG When compared with ECG of 11-FEB-2018 14:52, No significant change was found Confirmed by Jimmy Erickson ([id number]) on 10/12/2020 1:29:57 PM Referred By: Saturnino Blood Confirmed By:Jimmy Erickson
--- NOTE | 2020-10-20 21:20 | History & Physical Report ---
Date of Service October 22, 2020 Assessment & Plan (1) Degenerative joint disease of right hip: I have indicated the patient for right anterior total hip replacement. The risks, benefits and complications of surgery were explained to the patient which include but not limited to infection, acute blood loss, DVT/PE, injury to nerves, vessels, bone, soft tissue, arthrofibrosis, chronic pain, failure of the prosthesis, hip dislocation, leg length discrepancy, need for additional surgery, cardiac and pulmonary events and . The patient wished to proceed with surgery and informed consent was obtained at this time. We will plan for 81mg ASA BID post-operatively for DVT prophylaxis. Upon discharge the patient will be discharged home with home health services. Appropriate clearances by PCP were obtained. History of Present Illness Chief Complaint: Right hip pain/DJD Primary Care Provider: Debbie Bajwa The patient is a 60 year old female who presents with complaints of severe right hip pain and DJD. The patient has failed outpatient conservative treatments to this point which included NSAIDS IA steroid injection, home ex ercise/walking program. The patient's pain and limited function have progressed to the point where they severely hinder their activities of daily living and they no longer tolerate exercise programs. They are requesting to proceed with total hip replacement surgery. Allergies Allergy/AdvReac Type Severity Reaction Status Date / Time No Known Allergies Allergy Verified 10/10/20 09:35 Home Medications Medication Instructions Recorded Confirmed Type acetaminophen [Acetaminophen Extra 1,000 mg PO TID PRN 09/19/20 10/22/20 History Strength] celecoxib [Celebrex] 200 mg PO BID 09/19/20 10/22/20 History Past Med/Surg History Medical History (Updated 10/22/20 @ 08:52 by Hemanth White MD) Degenerative joint disease (DJD) of hip History of anesthesia reaction woke up during left FARHAT 2019 @ [facility] Obesity Surgical History History of appendectomy History of benign breast biopsy History of section History of tooth extraction History of total left hip arthroplasty Family History Mother Family history of esophageal cancer Other No family history of adverse response to anesthesia Social History Smoking Status: Former smoker Smoking End Date: quit 15yrs ago; Second Hand Exposure: Yes ( smoked quit when pt quit 15yrs ago); Do You Dip or Chew Tobacco: No; Tobacco Cessation Education Requested by Patient: No Hx Alcohol Use: Yes Alcohol type: beer and wine Hx Substance Use: No Preferred Language: [place] Communication Ability: Effective Adjunct Physical Education Instructor Required: No Beliefs That Will Affect Care: None Current Living Situation: Spouse Other Information That Helps Us Care for You: No Feels Safe at Home: Yes Safety Concerns: Feels Safe At This Time Assistive Devices: Glasses and Walker Review of Systems Review of Systems: All systems reviewed & are unremarkable except as noted in HPI & below Constitutional: as per Subjective / HPI Physical Exam Physical Exam: RLE NVSI +EHL/FHL/TA/GS SILT grossly, +2 DP pulse, compartments soft NT, limited painful ROM of the hip, antalgic gait. Constitutional: WD/WN, vitals as above Eyes: PERRL, conjunctivae normal, anicteric sclerae ENMT: external ear and nose normal, oropharynx normal Neck: trachea midline, no thyromegaly Respiratory: normal respiratory effort, lungs clear to auscultation Cardiovascular: RRR, no murmur, no edema Chest (Breasts): normal inspection/palpation of breasts Gastrointestinal (Abdomen): normal bowel sounds, soft, nontender, no hepatosplenomegaly Musculoskeletal: no cyanosis or clubbing, extremities motor strength 5/5 Skin: no rashes, warm and dry Neurologic: patellar DTR's 2+ bilat, sensation intact Psychiatric: A+Ox3, euthymic affect Lymphatic: no cervical or axillary lymphadenopathy Results & Data Results & Data ([facility]) Diagnostic Findings Multiple views of the hip demonstrates severe DJD with complete loss of the joint space. +osteophytes, +sclerosis, +subchondral cysts. Pre Admission Testing Addendum Laboratory Results 10/11/20 14:57 10/11/20 14:57 PT 11.0 Seconds (9.0-12.0) 10/11/20 14:57 INR 1.1 (0.9-1.1) 10/11/20 14:57 APTT 26.3 Seconds (21.0-31.0) 10/11/20 14:57 Hemoglobin A1c 5.2 % (4.5-5.6) 10/11/20 14:57 Urine Color Yellow 10/11/20 14:57 Urine Appearance Clear (Clear) 10/11/20 14:57 Urine pH 6.5 (4.5-7.5) 10/11/20 14:57 Ur Specific [place] 1.017 (1.000-1.030) 10/11/20 14:57 Urine Protein Negative (Negative) 10/11/20 14:57 Urine Glucose (UA) Negative (Negative) 10/11/20 14:57 Urine Ketones Negative (Negative) 10/11/20 14:57 Urine Nitrite Negative (Negative) 10/11/20 14:57 Ur Leukocyte Esterase Negative (Negative) 10/11/20 14:57 Blood Type A Positive 10/11/20 14:57 Antibody Screen NEGATIVE 10/11/20 14:57 10/11/20 14:57 Urine Culture - Final Urine,Clean Catch Three types of organisms present, all low counts probable skin jh. No further identifications or sensitivities to follow.
[~2020-10-22 06:43] MED LIST changes: -CEFAZOLIN 2000MG IV PUSH 15 ML IV SCH; -CLB/200 PO; -DEXAMETHASONE 4 MG TAB PO SCH; -DIAZ-165 PO; +GENERAL ORDER PROBLEM SCH; -IBUP-1050 PO; -LACTATED RINGER'S 1000ML 1,000 ML IV SCH; +LR 500ML BOLUS, THEN 15ML/HR IV SCH; -METOCLOPRAMIDE HCL 10 MG TAB PO SCH; +METOCLOPRAMIDE HCL 10 MG TABLET PO SCH; +ROPIVACAINE 0.5% HCL/PF 150 MG, BUPIVACAINE 0.75% MPF 20 ML, EPINEPHrine 30MG/30ML (OR ... INFIL SCH; -ROPIVACAINE 5MG/ML 30 ML 150 MG, BUPIVACAINE 0.5% MPF INJ 30 ML, EpINEphrine HCL INJ 0.... INFIL SCH; -TRAM-10 PO; +TRANEXAMIC ACID / 0.7% NACL 1,000 MG/100 ML BAG IV SCH; +ceFAZolin 2000MG 2,000 MG/15 ML SYR IV SCH; +dexAMETHasone 4 MG TAB PO SCH
[2020-10-22] MEDS ORDERED: BUPIVACAINE 0.5 % 5 MG/1 ML PF 10ML VIAL ONE (06:44)
[2020-10-22] MEDS ORDERED: PROPOFOL IV EMULSION 10 MG/ML 20 ML VIAL IV ONE (07:26)
[2020-10-22] MEDS ORDERED: fentaNYL citrate 100 MCG/2 ML VIAL ONE (07:26)
[2020-10-22] MEDS ORDERED: MIDAZOLAM HCL 1 MG/ML 2ML VIAL ONE ×2 (07:26→10:08)
[2020-10-22] MEDS ORDERED: LABETALOL HCL IV 5 MG/ML 20ML IV PRN (08:15)
[2020-10-22] MEDS ORDERED: MEPERIDINE HCL 25 MG/ML CARP/VIAL IV PRN (08:15)
[2020-10-22] MEDS ORDERED: HYDROmorphone INJ 1 MG/ML SYRINGE IV PRN (08:15)
[2020-10-22] MEDS ORDERED: ONDANSETRON INJ 2 MG/ML 2 ML VIAL IV PRN ×2 (08:15→13:07)
[2020-10-22] MEDS ORDERED: ATROPINE SULFATE 0.1 MG/ML 10ML SYR IV PRN (08:15)
[2020-10-22] MEDS ORDERED: PHENYLEPHRINE 100MCG/ML 5ML SYR IV PRN (08:15)
[2020-10-22] MEDS ORDERED: ePHEDrine sulfate 50 MG/ML AMP IV PRN (08:15)
[2020-10-22] MEDS ORDERED: fentaNYL citrate 100 MCG/2 ML VIAL IV PRN (08:15)
--- NOTE | 2020-10-22 09:30 | History & Physical Bridge Note ---
Date of Service October 22, 2020 History & Physical Bridge Note I have examined the patient, reviewed the History & Physical and in the interval since the performance of the History & Physical I have noted the following changes of clinical significance: no changes noted
[2020-10-22] MEDS ORDERED: ORTHO JOINT ANESTHETIC ONE (09:31)
[2020-10-22] MEDS ORDERED: BACITRACIN INJ 50,000 UNIT VIAL ONE (09:31)
[2020-10-22] MEDS ORDERED: PHENYLEPHRINE HCL 10 MG/ML VIAL ONE (10:10)
--- NOTE | 2020-10-22 11:34 | Post Operative Brief Note ---
Immediate Post Op Note v1 Date of Surgery October 22, 2020 Pre & Post Diagnosis Operation Date: 10/22/20 09:00 Pre-Op Diagnosis: Unilateral Primary Osteoarthritis, Right Hip Post-Op Diagnosis: Unilateral Primary Osteoarthritis, Right Hip I identified the patient and participated in the time-out.: Yes Procedure Operation Date: 10/22/20 09:00 Actual Procedures p Right Anterior Total Hip Arthroplasty(Right) - Saturnino Blood DO Surgeon Saturnino Blood DO Purchasing Intern Jose Alejandro Carrillo Estimated Blood Loss 165 Findings Consistent with Post-Op Diagnosis Specimens femoral head Anesthesia Type Spinal MAC Complications none Disposition Disposition: Recovery Room Overlapping Procedure I was present for: the critical portions of procedure. I was immediately available: during the entire case. Back up surgeon: was not required during procedure.
--- NOTE | 2020-10-22 11:35 | Operative Report ---
Post Operative Report Pre & Post Diagnosis Operation Date: 10/22/20 09:00 Pre-Op Diagnosis: Unilateral Primary Osteoarthritis, Right Hip Post-Op Diagnosis: Unilateral Primary Osteoarthritis, Right Hip I identified the patient and participated in the time-out.: Yes Procedure Operation Date: 10/22/20 09:00 Actual Procedures p Right Anterior Total Hip Arthroplasty(Right) - Saturnino Blood DO Surgeon Saturnino Blood DO Professional Skater Jose Alejandro Carrillo Estimated Blood Loss 165 Findings Consistent with Post-Op Diagnosis Specimens femoral head Anesthesia Type Spinal MAC Complications none Disposition Disposition: Recovery Room Indications The patient is a 60-year-old female who presents with severe progressive right hip DJD who has failed outpatient conservative treatments. I indicated the patient for a anterior total hip replacement and the risks and benefits were explained in detail which include but not limited to infection, bleeding, blood clot, damage to surrounding bone, nerves, vessels, soft tissue, hip dislocation, failure of the prosthesis, leg length discrepancy, need for additional surgery and . The patient agreed to proceed with replacement of the hip and informed consent was obtained. Appropriate clearances were obtained. Description of Procedure COMPONENTS USED: [employer] hip system: Acetabulum size 50, femur size 5 standard offset, femoral head 32+4, liner 50x32, acetabular screw 25 mm x 1. DESCRIPTION OF PROCEDURE: Following satisfactory spinal anesthesia, the patient was placed supine on the OR table. The left leg was placed in the well leg bhat and the right leg in the traction device. The right leg was prepared with ChloraPrep and draped sterilely. A surgical timeout was performed, patient identified and site haider verified. Appropriate antibiotics were given. A standard anterior approach in the interval between the sartorius and tensor muscles was performed. Dissection was carried down through subcutaneous tissues. Electrocautery was utilized for hemostasis. Circumflex femoral vessels were identified, tied and ligated. The anterior capsular fat pad was removed and the capsulotomy was performed revealing the arthritic femoral neck and head. A femoral neck cut was made with reciprocating saw and the bone fragments removed. The acetabular self-retraining retractor was placed. Acetabular reaming was completed under fluoroscopic guidance, a 50 shell was impacted into an anatomic position and secured with a acetabular screw. Local anesthetic was placed and following irrigation, the polyethylene liner was placed. The femur was placed into position of external rotation, extension and adduction. Femoral canal was prepared up to the size 5 standard offset. Trial reduction with a 32+4 neck length head showed good soft tissue tension, leg lengths restored, and good fit and fill of the proximal canal using fluoroscopic landmarks. The hip was dislocated. The trial component was removed. The final implant was placed. The hip was irrigated with sterile saline solution and reduced. A Betadine soak was performed. After 3 minutes, the hip was once more irrigated with copious sterile saline solution with bacitracin. Bozena-incisional soft tissue was injected utilizing [place] [employer] which includes a combination of Ropivicaine 0.5% 150mg, Bupivicaine 0.5%/Epinephrine 1:200,000 30ml, Toradol 30mg, Dexamethasone 4mg, Ketamine 10mg, Clonidine 100mcg and NSS 30ml solution. The capsule was then closed with 1-0 Vicryl interrupted figure of eight sutures. The fascia was closed with a running suture of #1 Vicryl, the subcutaneous tissues with 2-0 Vicryl and the skin with a running subcuticular stitch of 3-0 V-Loc. Dermabond prineo and a dry dressing were applied. The patient tolerated the procedure well and was transported to PACU in stable condition. Due to the complex nature of the procedure, the entire surgery was performed with the operational assistance of Jose Alejandro Carrillo PA-C. The medical assistant internal medicine, under direct supervision, was involved in the actual performance of all aspects of the surgical procedure including patient positioning, hemostasis, tissue retra ction, instrument management and wound closure. I attest to the content of the Intraoperative Record and any orders documented therein. Any exceptions are noted below.
--- NOTE | 2020-10-22 11:54 | Fluoroscopy Report ---
FL hip RT 1V CLINICAL HISTORY: RT ANTERIOR HIP COMPARISON STUDY: None. FLUOROSCOPY TIME: 39 seconds. FINDINGS: 2 fluoroscopic spot images of the right hip demonstrate a right total hip arthroplasty. The hardware appears intact. No fracture or dislocation. IMPRESSION: Fluoroscopy provided for right total hip arthroplasty. No evidence for hardware complicat ions. ACT 112: Negative or not required by law. Electronically signed by: Hemanth Callejas M.D. 10/22/2020 11:52 AM
--- NOTE | 2020-10-22 12:18 | XRay Report ---
AP PELVIS, CROSSTABLE LATERAL RIGHT HIP History: Right total hip arthroplasty. Degenerative arthritis. Postop. FINDINGS: The patient is status post a right total hip arthroplasty. The hardware is intact. No fract ure or dislocation. Evidence for prior left total arthroplasty. IMPRESSION: Right total hip arthroplasty. No evidence for hardware complication ACT 112: Negative or not required by law. Electronically signed by: Hemanth Callejas M.D. 10/22/2020 12:16 PM
--- NOTE | 2020-10-22 12:42 | Anesthesiology Progress Note ---
Date of Service October 22, 2020 Anesthesia Post Procedure Vital Signs Vital Signs: Temp Pulse Pulse Resp BP BP Pulse Ox 10/22/20 12:30 36.5 C 88 19 131/76 99 10/22/20 12:20 91 H 21 123/50 L 100 10/22/20 12:10 89 13 116/64 99 10/22/20 12:01 36.4 C L 96 H 20 114/69 97 10/22/20 07:37 36.6 C 96 H 18 162/74 H 99 Transfer of Care Handoff Completed per policy Notes Mental Status: alert / awake / arousable Patient Amnestic to Procedure: Yes Nausea / Vomiting: adequately controlled Pain: adequately controlled Airway Patency, RR, SpO2: stable & adequate BP & HR: stable & adequate Hydration State: stable & adequate Neuraxial Anesthesia: was administered and sensory block is resolving Anesthetic Complications: no major complications apparent and Pt Satisfied with anesthetic care
[2020-10-22] MEDS ORDERED: MAGNESIUM HYDROXIDE SUSP 30 ML UDC PO PRN (13:07)
[2020-10-22] MEDS ORDERED: diphenhydrAMINE Capsule 25 MG CAP PO PRN (13:07)
[2020-10-22] MEDS ORDERED: METOCLOPRAMIDE HCL INJ 5 MG/ML 2 ML VIAL IV PRN (13:07)
[2020-10-22] MEDS ORDERED: NALOXONE HCL 0.4 MG/1 ML VIAL/CARP IV PRN (13:07)
[2020-10-22] MEDS ORDERED: bisacodyL 10 MG SUPP PR PRN (13:07)
[2020-10-22] MEDS ORDERED: HYDROmorphone INJ 0.5 MG/0.5 ML SYR IV PRN (13:07)
[2020-10-22] MEDS ORDERED: SODIUM CHLORIDE 0.9% 1000ML 1,000 ML IV SCH (13:07)
[2020-10-22] MEDS: KETOROLAC TROMETHAMINE 15 MG/ML VIAL IV SCH ×2 (14:25→19:52)
[2020-10-22] MEDS: ACETAMINOPHEN 500 MG TAB PO SCH ×2 (14:26→21:48)
--- NOTE | 2020-10-22 17:00 | Orthopedic Progress Note ---
Date of Service October 22, 2020 Assessment & Plan (1) Degenerative joint disease of right hip: Status post right anterior total hip arthroplasty Ancef x24 DVT prophylaxis: SCDs, teds, 81 mg ASA twice daily Weight-bear as tolerates right lower extremity PT/OT Postoperative x-ray demonstrates well aligned well fixed prosthesis without fracture or dislocation A.m. labs DC planning Admission and Anticipated Discharge Date Admission Date: October 22, 2020 Subjective Post Operative Progress Note Patient seen sitting up in bed, comfortable, denies complaints, pain well controlled, no acute issues. Review of Systems Review of Systems: All systems reviewed & are unremarkable except as noted in HPI & below Constitutional: as per Subjective / HPI Physical Exam Physical Exam: RLE NVSI +EHL/FHL/TA/GS SILT grossly, +2 DP pulse, compartments soft NT, dressing cdi. Constitutional: WD/WN, vitals as above Results & Data ([facility]) Vital Signs (Past 12 Hours) Vital Signs Temp Pulse Pulse Pulse Resp BP BP 10/22/20 15:42 36.5 C 99 H 16 147/86 H 10/22/20 14:49 99 H 18 130/81 10/22/20 13:37 83 16 133/81 10/22/20 13:20 84 16 133/81 10/22/20 12:50 36.4 C L 85 18 132/81 10/22/20 12:30 36.5 C 88 19 131/76 10/22/20 12:20 91 H 21 123/50 L 10/22/20 12:10 89 13 116/64 10/22/20 12:01 36.4 C L 96 H 20 114/69 10/22/20 07:37 36.6 C 96 H 18 162/74 H Pulse Ox 10/22/20 15:42 100 10/22/20 14:49 100 10/22/20 13:37 100 10/22/20 13:20 100 10/22/20 12:50 100 10/22/20 12:30 99 10/22/20 12:20 100 10/22/20 12:10 99 10/22/20 12:01 97 10/22/20 07:37 99
[2020-10-22] MEDS: ceFAZolin 2000MG 2,000 MG/15 ML SYR IV SCH (18:21)
[2020-10-22] MEDS ORDERED: SENNA 8.6 MG TAB PO SCH (21:00)
[2020-10-22] MEDS: DOCUSATE SODIUM 100 MG CAP PO SCH (21:48)
[2020-10-22] MEDS: oxyCODONE HCL IR 5 MG TAB (IMMEDIATE RELEASE) PO PRN (22:55)
[2020-10-23] MEDS: KETOROLAC TROMETHAMINE 15 MG/ML VIAL IV SCH ×2 (02:12→07:27)
[2020-10-23] MEDS: ceFAZolin 2000MG 2,000 MG/15 ML SYR IV SCH (02:12)
[2020-10-23] MEDS: oxyCODONE HCL IR 5 MG TAB (IMMEDIATE RELEASE) PO PRN ×3 (04:15→14:28)
[2020-10-23] MEDS: ACETAMINOPHEN 500 MG TAB PO SCH ×2 (06:01→13:52)
[2020-10-23 06:19] LABS: Hematocrit (blood only) 36.4 % (37-47); Hemoglobin 12.6 g/dL (12.0-16.0); Immature Granulocytes # (auto) 0.03 K/uL (0.00-0.02); Immature Granulocytes % (auto) 0.2 %; Lymphocytes # (auto) 1.35 K/uL (1.2-3.4); Lymphocytes % (auto) 10.4 %; Mean Corpuscular Hemoglobin 31.7 pg (25-34); Mean Corpuscular Hgb Conc 34.6 g/dL (32-36); Mean Corpuscular Volume 91.7 fL (80-100); Mean Platelet Volume 10.4 fL (7.4-10.4); Monocytes # (auto) 0.88 K/uL (0.11-0.59); Monocytes % (auto) 6.8 %; Neutrophils # (auto) 10.66 K/uL (1.4-6.5); Neutrophils % (auto) 82.6 %; Platelet Count 297 K/uL (130-400); RDW Coefficient of Variation 12.7 % (11.5-14.5); RDW Standard Deviation 42.9 fL (36.4-46.3); Red Blood Count 3.97 M/uL (4.2-5.4); White Blood Count 12.92 K/uL (4.8-10.8)
[2020-10-23 06:43] LABS: Calcium 9.3 mg/dl (8.5-10.1); Creatinine Clr Calc Pharmacy 81.5 ml/min; Est GFR (Non-African American) 81.9; Potassium 4.1 mmol/L (3.5-5.1)
[2020-10-23] MEDS: DOCUSATE SODIUM 100 MG CAP PO SCH (08:14)
[2020-10-23] MEDS ORDERED: ASPIRIN 81 MG ECTAB PO SCH (09:00)
[2020-10-23] MEDS ORDERED: MULTIVITAMIN TAB PO SCH (09:00)
--- NOTE | 2020-10-23 09:11 | Orthopedic Progress Note ---
Date of Service October 23, 2020 Assessment & Plan (1) Degenerative joint disease of right hip: Status post right anterior total hip arthroplasty POD#1 Ancef x24 DVT prophylaxis: SCDs, teds, 81 mg ASA twice daily Weight-bear as tolerates right lower extremity PT/OT Postoperative x-ray demonstrates well aligned well fixed prosthesis without fracture or dislocation A.m. labs - as above, hgb 12.6 DC planning - home with Admission and Anticipated Discharge Date Admission Date: October 22, 2020 Subjective Post Operative Progress Note Patient seen sitting up in bed, comfortable, denies complaints, pain well controlled, no acute issues. Denies F/C/N/V/SOB/CP. Review of Systems Review of Systems: All systems reviewed & are unremarkable except as noted in HPI & below Constitutional: as per Subjective / HPI Physical Exam Physical Exam: RLE NVSI +EHL/FHL/TA/GS SILT grossly, +2 DP pulse, compartments soft NT, dressing cdi. Constitutional: WD/WN, vitals as above Results & Data ([facility]) Vital Signs (Past 12 Hours) Vital Signs Temp Pulse Resp BP Pulse Ox 10/23/20 07:34 36.6 C 75 18 125/78 100 10/23/20 02:19 36.5 C 83 17 155/88 H 98 10/22/20 22:30 36.5 C 73 18 149/73 H 98 Laboratory Results 10/23/20 10/23/20 Range/Units 05:35 05:35 WBC 12.92 H (4.8-10.8) K/uL RBC 3.97 L (4.2-5.4) M/uL Hgb 12.6 (12.0-16.0) g/dL Hct 36.4 L (37-47) % MCV 91.7 (80-100) fL MCH 31.7 (25-34) pg MCHC 34.6 (32-36) g/dL RDW Std Deviation 42.9 (36.4-46.3) fL RDW Coeff of Ruben 12.7 (11.5-14.5) % Plt Count 297 (130-400) K/uL MPV 10.4 (7.4-10.4) fL Immature Gran % (Auto) 0.2 % Neut % (Auto) 82.6 % Lymph % (Auto) 10.4 % [place] % (Auto) 6.8 % Eos % (Auto) 0.0 % Baso % (Auto) 0.0 % Neut # (Auto) 10.66 H (1.4-6.5) K/uL Lymph # (Auto) 1.35 (1.2-3.4) K/uL [place] # (Auto) 0.88 H (0.11-0.59) K/uL Eos # (Auto) 0.00 (0-0.5) K/uL Baso # (Auto) 0.00 (0-0.2) K/uL Immature Gran # (Auto) 0.03 H (0.00-0.02) K/uL Sodium 140 (136-145) mmol/L Potassium 4.1 (3.5-5.1) mmol/L Chloride 110 H (98-107) mmol/L Carbon Dioxide 22 (21-32) mmol/L Anion Gap 8.0 (3-11) BUN 18 (7-18) mg/dl Creatinine 0.79 (0.6-1.2) mg/dl Est Cr Clr Drug Dosing 81.5 ml/min Est GFR ( Amer) 95.0 Est GFR (Non-Af Amer) 81.9 BUN/Creatinine Ratio 23.0 H (10-20) Glucose 121 H (70-99) mg/dl Calcium 9.3 (8.5-10.1) mg/dl
[2020-10-23] MEDS ORDERED: CeleBREX 200 MG CAP PO SCH (13:00)
--- NOTE | 2020-10-23 17:28 | Discharge Summary ---
Date of Service October 23, 2020 Admission HPI Per Admitting Provider The patient is a 60 year old female who presents with complaints of severe right hip pain and DJD. The patient has failed outpatient conservative treatments to this point which included NSAIDS IA steroid injection, home exercise/walking program. The patient's pain and limited function have progressed to the point where they severely hinder their activities of daily living and they no longer tolerate exercise programs. They are requesting to proceed with total hip replacement surgery. Principal Diagnosis Right anterior total hip replacement -Right hip DJD Discharge Exam RLE NVSI +EHL/FHL/TA/GS SILT grossly, +2 DP pulse, compartments soft NT, dressing cdi. Constitutional WD/WN, vitals as above Discharge Data Allergies Allergy/AdvReac Type Severity Reaction Status Date / Time No Known Allergies Allergy Verified 10/10/20 09:35 Procedures Performed Operation Date: 10/22/20 09:00 Actual Procedures p Right Anterior Total Hip Arthroplasty(Right) - Saturnino Blood DO Ordered Studies 10/22/20 09:00 FL fluoroscopy <1hr Routine FL hip RT 1V Routine Hospital Course (1) Degenerative joint disease of right hip: The patient is a 60 -year-old female who presents with long standing history of severe right hip DJD and failed outpatient conservative treatments. The patient's symptoms have progressed to the point where it has been difficult to perform even normal activities of daily living. I indicated the patient for a right anterior total hip arthroplasty, the risks, benefits and complications of the procedure include but not limited to infection, bleeding, damage to bone, nerves, vessels, surrounding soft tissue, may develop blood clots, loss of function, leg length discrepancy, dislocation, failure of the components, loosening of the components, the need for additional surgery and . The patient wished to proceed with surgery at this time and informed consent was obtained. Hospital Course: On 10/22/20 the patient was taken to the operating room, adequate anesthesia administered and underwent a right anterior total hip arthroplasty. The patient tolerated the procedure well and was taken to the PACU in stable condition. Post-operatively the patient was started on a DVT ppx medication and given appropriate IV antibiotics. Consults were placed to physical therapy, occupational therapy and case management. On POD#1, the patient did well overnight and their pain was well controlled. Labs were drawn and the Hgb was 12.6. The patient progressed well with PT. Dressings were changed at this time and the incision was clean, dry and intact. The patients hospital stay was relatively uneventful and they were deemed stable by the orthopedic team and consultants to be discharged home with HH on 10/23/20. Discharge Instructions: Upon discharge the patient may weight bear as tolerates through their operative extremity. They were instructed to keep the incision clean and dry at all times. The patient may shower but should not submerge the incision, avoid bathing, pools and hot tubs. The patient was given a script for pain medication and should take as instructed. The patient was given a script for DVT ppx 81mg ASA BID and should take as directed. The patient was instructed to not drive or travel for long distances until cleared to do so. If the patient develops any symptoms of fevers, chills, nausea, vomiting, increased redness, swelling, pain or drainage from the surgical site, they should notify the office and/or proceed to the nearest emergency room. The patient should follow up in 10-14 days after surgery for their routine post-operative follow-up appointment and should call the office, to confirm the date and time. Status post right anterior total hip arthroplasty POD#1 Ancef x24 DVT prophylaxis: SCDs, teds, 81 mg ASA twice daily Weight-bear as tolerates right lower extremity PT/OT Postoperative x-ray demonstrates well aligned well fixed prosthesis without fracture or dislocation A.m. labs - as above, hgb 12.6 DC planning - home with Total Time Total Time Spent Total Time Spent (In Minutes): 30 Discharge Plan Discharge Items Patient Disposition: Home - Home Health Services Reason For Visit: Unilateral Primary Osteoarthritis, Right Hip Discharge Diagnosis: Right anterior total hip replacement Condition on Discharge: Good Activity: Per Instructions section Lifting: Wait until after follow-up appointment Bathing: Keep incision dry Bathing Comment: No bathing, pools or hot tubs. Sexual Activity: Wait until after follow-up appointment Exercise/Sports: Wait until after follow-up appointment Driving/Machine Use: No driving. Weightbearing: Full weightbearing Non-emergency contact: Primary Care Provider and Surgeon Call non-emergency contact if: you have any medication questions, your symptoms worsen, your pain is not controlled, your pain is worsening, your pain is unusual for you, your pain is concerning for you, you have a fever, your temperature is above 101, your wound has increased redness, your wound has increased drainage and your wound pain has increased Follow-up/Referrals: Debbie Bajwa [Primary Care Provider] - Diet: Regular Addtl Attending Provider Instructions: ACTIVITY RECOMMENDATIONS: SELF CARE INSTRUCTIONS AFTER TOTAL HIP REPLACEMENT : Direct Anterior Approach Until the incision and soft tissues around your hip have healed, there is a possibility that the hip prosthesis could dislocate. A. Hip flexion ( Up & Down out of chair or steps ) may be difficult. This is normal. B. Numbness in front of the thigh is also normal for a few weeks. C. Use hand rails when walking on stairs. D. Wear low heeled shoes with non-slip soles. E. Be sure that your floors are free of things that could trip you - throw rugs, electrical cords, small objects. Avoid wet and waxed floors, especially with crutches and canes. F. Try to walk several times a day with rest periods between. G. Continue with all the exercises taught to you in the hospital. Again, make walking a part of your daily routine. SPECIAL CARE INSTRUCTIONS: VERY IMPORTANT TO READ AND REVIEW A. You may still be at risk for phlebitis and blood clots. 1. Wear surgical stockings (MINE hose) for 2 weeks after surgery to improve circulation and reduce swelling. 2. Take Aspirin 81mg twice daily for 4 weeks or as directed by your doctor. This is your blood thinner. 3. High risk patients may be prescribed a stronger blood thinner if necessary. 4. If you are on Coumadin normally, your family doctor/business specialist should monitor your blood work. Expect a phone call the day of or the day after bloodwork is drawn to adjust your dosage. B. You must take antibiotics before having dental work, bladder, bowel and other surgery. Your doctor will provide you with a permanent card to carry describing precautions. C. Call [facility] if you have a fever, redness or swelling around the incision, cloudy drainage from incision, or sudden increase in pain in your hip, not relieved by your regular pain medication. D. Please call the office at if you have any concerns or questions about your operation or recovery. * YOU MAY SHOWER, NO TUB BATHS UNTIL CLEARED BY YOUR DOCTOR. - Keep an extra close eye on the top portion of your incision. Be sure to keep clean & dry. * WEAR MINE HOSE 20 HOURS PER DAY FOR 2 WEEKS. * YOU MAY PROGRESS FROM A WALKER, TO A CANE, TO INDEPENDENT AT YOUR OWN PACE. * MOST PATIENTS WILL HAVE HOME NURSING FOR THERAPY. IF YOU DECIDE TO DO OUTPATIENT PHYSICAL THERAPY, PLEASE SCHEDULE THIS 3 TIMES PER WEEK. * DERMABOND Prineo- This is a mesh tape dressing that is covered with glue. It should remain in place until the incision is properly healed, usually 10-14 days. This dressing is designed to naturally slough off. You may trim the excess mesh tape as it peels off. Incision may be briefly wet in a shower. Dry immediately by blotting with a clean, dry towel. Do not bath or swim until instructed by your doctor. Do not scratch, rub, or pick at the dressing. Do not apply any topical ointments or lotions until dressing is completely removed and/or instructed by your doctor. There may be a small piece of suture material at one end of your incision. Do not pull or trim this. If it is bothersome or catching on clothing, you may cover it with a band-aid. FOLLOW UP VISIT: If appointment is not already scheduled: Please call [facility] to make a follow-up appointment for 2 weeks after your surgery at . Pending Studies at Discharge: No Stand-Alone Forms: My [facility] [employer], Smoking Cessation Medications and DC Order Prescriptions: New celecoxib [Celebrex] 200 mg Capsule 200 mg PO BID PRN (Reason: pain/inflammation) Qty: 28 RF: 0 aspirin 81 mg Tablet,Delayed Release (Dr/Ec) 81 mg PO BID Qty: 56 RF: 0 acetaminophen 500 mg Tablet 1,000 mg PO Q8 PRN (Reason: pain/fevers) Qty: 90 RF: 0 oxycodone 5 mg Tablet 5 mg PO Q6H MDD 4 PRN (Reason: pain) Qty: 30 RF: 0 sennosides [Senokot] 8.6 mg Tablet 17.2 mg PO HS Qty: 28 RF: 0 Discontinued celecoxib [Celebrex] 200 mg Capsule 200 mg PO BID RF: 0 acetaminophen [Acetaminophen Extra Strength] 500 mg Tablet 1,000 mg PO TID PRN (Reason: Pain) RF: 0 Discharge Orders: Discharge Order (Routine); Ordered 10/23/20 Ordered By: Saturnino Enamorado/Other Patient Handouts: DVT Post Op Prevention Admission Data Admit Date/Time: 10/22/20 12:05 Attending Provider: Saturnino Blood Admit Provider: Saturnino Blood Primary Care Provider: Debbie Bajwa Other Interventions: Discharge Summary Assessment (RN) Last Done: 10/23/20 14:34
== END 2020-10-23 15:44 | disposition home health service (06) | DRG 470 ==
LOC: 3E 06:43 → ASU 06:43 → OBSVTOIN 12:05